=== PATIENT | female | born 1975 | race Caucasian/White ===

== ENCOUNTER → 2019-06-08 | Outpatient (CLI) | payer OTHER, SELFPAY ==
[2018-10-02 15:43] VITALS: BMI 41.8
--- NOTE | 2019-06-08 18:15 | MRI_ITS ---
STUDY: MRI BRAIN WITH AND WITHOUT CONTRAST REASON FOR EXAM: Female, 43 years old. Possible multiple sclerosis TECHNIQUE: Standardized multiplanar fat and water weighted pulse sequences were obtained. 20 IV Dotarem was administered for the contrast portion of the examination. COMPARISON: None. FINDINGS: Normal size of the ventricles and extra-axial spaces for the patient's age. There are a few nonspecific white matter lesions bilaterally without mass effect or restricted diffusion.. Normal bilateral basal ganglia. Normal thalami. There is no extra-axial fluid accumulation. Normal flow voids within the major intracranial circulation suggesting patency by spin echo criteria. Normal venous enhancement. There is no enhancing intra-axial or extra-axial abnormality. . Empty sella deformity. Normal, infundibular stalk, optic chiasm and hypothalamus. Normal tectal plate and pineal gland. Normal midbrain, azeem and medulla. Normal cerebellum. Normal basal cisterns. Normal bilateral temporal bones. Normal bilateral internal auditory canals. On the coronal T2 thin sections imaging of the orbits there are tiny foci of increased signal intensity within the optic nerve bilaterally which may be consistent with nonspecific optic neuritis or demyelinating plaques. There is no enhancement following contrast administration. Minor mucosal thickening of the ethmoid air cells.. Normal calvarium and skull base. Normal visualized soft tissue structures. Normal visualized upper cervical spine. MRI/Brain W/WO Contrast IMPRESSION: Mild nonspecific periventricular white matter disease in a patient of this age most likely represents nonspecific small vessel ischemic changes. Demyelinating process cannot be excluded. There is no evidence for acute infarct. Tiny foci of increased signal intensity within the optic nerves best seen on coronal thin T2 sections which can be consistent with demyelinating disease. No enhancement following contrast administration Incidental finding of empty sella deformity of uncertain clinical significance but can be seen in relationship with pseudotumor cerebri. Clinical correlation recommended Electronically Signed: Maxime Camacho MD at 19:55 EDT , Service support ,
== END | disposition home or self-care (01) ==
LOC: MRI 18:02
PROVIDERS: Family Provider Pediatrics; PCP Pediatrics; Referring Provider Ophthalmology; Visit Provider Ophthalmology
DX: H43.89 Other disorders of vitreous body (principal)
CPT/HCPCS: 70553; A9575

== ENCOUNTER → 2020-05-16 | Outpatient (CLI) | payer OTHER, SELFPAY ==
[2018-10-02 15:43] VITALS: BMI 41.8
== END | disposition home or self-care (01) ==
LOC: LABSPEC 07:56
PROVIDERS: PCP Pediatrics; Visit Provider Family Medicine
DX: Z03.818 Encounter for observation for suspected exposure to other biological agents ruled out (principal); Z11.59 Encounter for screening for other viral diseases
CPT/HCPCS: 87635; U0003

== ENCOUNTER → 2020-05-23 08:44 | Outpatient (CLI) | payer OTHER, SELFPAY ==
[2018-10-02 15:43] VITALS: BMI 41.8
== END ==
LOC: OLS.ACH 08:45 → LABSPEC 05-25 12:45
PROVIDERS: PCP Pediatrics; Referring Provider Family Medicine; Visit Provider Family Medicine
DX: Z03.818 Encounter for observation for suspected exposure to other biological agents ruled out (principal)
CPT/HCPCS: 87635; U0003

== ENCOUNTER → 2020-08-03 | Outpatient (CLI) | payer OTHER, SELFPAY ==
[2018-10-02 15:43] VITALS: BMI 41.8
== END | disposition home or self-care (01) ==
LOC: LABSPEC 13:13
PROVIDERS: Visit Provider Family Medicine
DX: Z11.59 Encounter for screening for other viral diseases (principal)
CPT/HCPCS: 87635; U0003

== ENCOUNTER → 2020-08-17 | Outpatient (CLI) | payer OTHER, SELFPAY ==
[2018-10-02 15:43] VITALS: BMI 41.8
== END | disposition home or self-care (01) ==
LOC: LABSPEC 10:51
PROVIDERS: Referring Provider Family Medicine; Visit Provider Family Medicine
DX: Z11.59 Encounter for screening for other viral diseases (principal)
CPT/HCPCS: 87635; U0003

== ENCOUNTER → 2020-08-31 | Outpatient (CLI) | payer OTHER, SELFPAY ==
[2018-10-02 15:43] VITALS: BMI 41.8
== END | disposition home or self-care (01) ==
LOC: LABSPEC 09-01 07:37
PROVIDERS: Referring Provider Family Medicine; Visit Provider Family Medicine
DX: Z11.59 Encounter for screening for other viral diseases (principal)
CPT/HCPCS: 87635; U0003

== ENCOUNTER → 2020-09-14 | Outpatient (CLI) | payer OTHER, SELFPAY ==
[2018-10-02 15:43] VITALS: BMI 41.8
== END | disposition home or self-care (01) ==
LOC: LABSPEC 09:39
PROVIDERS: Referring Provider Family Medicine; Visit Provider Family Medicine
DX: Z03.818 Encounter for observation for suspected exposure to other biological agents ruled out (principal)
CPT/HCPCS: 87635; U0003

== ENCOUNTER → 2020-09-28 | Outpatient (CLI) | payer OTHER, SELFPAY ==
[2018-10-02 15:43] VITALS: BMI 41.8
== END | disposition home or self-care (01) ==
LOC: LABSPEC 12:40
PROVIDERS: Referring Provider Family Medicine; Visit Provider Family Medicine
DX: Z03.818 Encounter for observation for suspected exposure to other biological agents ruled out (principal)
CPT/HCPCS: 87635; U0003